=== PATIENT | male | born 1955 | race Caucasian/White ===

== ENCOUNTER 2018-05-31 05:36 | Emergency (ER) | payer MEDICARE, SELFPAY ==
[~2018-05-31] VITALS: Ht 172.7 cm; Wt 63.0 kg
[2018-05-31] MEDS ORDERED: DIAZ10TA PO (05:50)
[2018-05-31] MEDS ORDERED: OXYC-307 PO (05:50)
[2018-05-31] MEDS ORDERED: PARO20TA98 PO (05:50)
[2018-05-31] MEDS ORDERED: LIDOCAINE-MPF 1%, 5ML ONE (05:54)
[2018-05-31] MEDS ORDERED: DIPH,PERTUSS(ACELL),TET VAC/PF 0.5 ML IM-VACC ONE ×2 (05:54→06:00)
[2018-05-31] MEDS ORDERED: LIDOCAINE-MPF 1%, 5ML INFIL ONE (06:00)
[2018-05-31 08:09] VITALS: BP 122/68
== END 2018-05-31 08:11 | disposition home or self-care (01) ==
LOC: ED 07:48
DX: S61.411A Laceration without foreign body of right hand, initial encounter (principal); S43.402A Unspecified sprain of left shoulder joint, initial encounter; F32.9 Major depressive disorder, single episode, unspecified; F41.1 Generalized anxiety disorder; W45.8XXA Other foreign body or object entering through skin, initial encounter; Y93.89 Activity, other specified; Y92.009 Unspecified place in unspecified non-institutional (private) residence as the place of occurrence of the external cause; Y99.8 Other external cause status
CPT/HCPCS: 12042; 90471; 90715

== ENCOUNTER 2018-06-07 12:53 | Inpatient (IN) | payer MEDICARE, MEDICAID ==
[~2018-06-07] VITALS: Ht 167.6 cm; Wt 65.3 kg
[~2018-06-07 12:53] MED LIST: DIAZ10TA PO; OXYC-307 PO; PARO20TA98 PO
[2018-06-07 13:33] LABS: BASOPHILS # (AUTO) 0.05 x10^3/uL (0-0.1); BASOPHILS % (AUTO) 1 % (0-1); EOSINOPHILS # (AUTO) 0.11 x10^3/uL (0-0.4); EOSINOPHILS % (AUTO) 2 % (1-7); LYMPHOCYTES # (AUTO) 2.62 x10^3/uL (1-3.4); LYMPHOCYTES % (AUTO) 34 % (22-44); MD NO; MEAN CORPUSCULAR HEMOGLOBIN 33.2 pg (27.5-34.5); MEAN CORPUSCULAR HGB CONC 34.4 g/dL (33.2-36.2); MEAN CORPUSCULAR VOLUME 96.5 fL (81-97); MEAN PLATELET VOLUME 8.8 fL (7.4-10.4); MONOCYTES # (AUTO) 0.49 x10^3/uL (0.2-0.8); MONOCYTES % (AUTO) 6 % (2-9); NEUTROPHILS # (AUTO) 4.38 x10^3/uL (1.8-6.8); NEUTROPHILS % (AUTO) 57 % (42-75); PLATELET COUNT 270 x10^3/uL (130-400); RED BLOOD COUNT 3.84 x10^6/uL (4.38-5.82); RED CELL DISTRIBUTION WIDTH 14.3 % (9.4-14.8)
[2018-06-07 13:44] LABS: ANION GAP 9 mmol/L (5-15); CALCIUM 7.8 mg/dL (8.5-10.1); CHLORIDE 115 mmol/L (98-107); CREATININE 0.73 mg/dL (0.7-1.3)
[2018-06-07 13:45] LABS: ACETAMINOPHEN < 2 mcg/mL (10-30); ALBUMIN 3.3 g/dL (3.4-5.0); SALICYLATE LEVEL 5.4 mg/dL (2.8-20.0)
[2018-06-07 14:55] LABS: CHLORIDE,URINE RANDOM 67 mmol/L; POTASSIUM,URINE RANDOM 5 mmol/L; SODIUM,URINE RANDOM 68 mmol/L
[2018-06-07 14:56] LABS: CULTURE INDICATED? NO; MICROSCOPIC NOT IND
[2018-06-07 15:00] LABS: AMPHETAMINE SCREEN, URINE Negative (Negative); BARBITURATE SCREEN, URINE Negative (Negative); BENZODIAZEPINE SCREEN, URINE Positive (Negative); CANNABINOID SCREEN, URINE Negative (Negative); COCAINE SCREEN, URINE Negative (Negative); METHADONE SCREEN, URINE Negative (Negative); OPIATE SCREEN, URINE Negative (Negative)
[2018-06-07 15:07] LABS: OSMOLALITY,URINE 273 mOsm/kg (500-850)
[2018-06-07] MEDS ORDERED: SODIUM CHLORIDE FLUSH 10ML SYR IVF ONE ×2 (15:30)
[2018-06-07] MEDS ORDERED: POTASSIUM CHLORIDE 20 MEQ TAB.ER.PRT PO ONE (15:30)
[2018-06-07] MEDS ORDERED: SODIUM CHLORIDE 0.9% 1,000ML IVBOLUS ONE (15:30)
[2018-06-07] MEDS ORDERED: POTASSIUM CHLORIDE 20 MEQ TAB.ER.PRT ONE (15:41)
[2018-06-07] MEDS ORDERED: DOCUSATE 100 MG CAPSULE PO PRN (16:00)
[2018-06-07] MEDS ORDERED: ACETAMINOPHEN 325 MG TABLET PO PRN (16:00)
[2018-06-07] MEDS ORDERED: LORazepam 1MG TABLET PO PRN (16:00)
[2018-06-07] MEDS ORDERED: OXYcodone IR 5MG TABLET PO PRN (16:00)
[2018-06-07] MEDS ORDERED: ONDANSETRON 2MG/ML, 2ML IVPush PRN (16:00)
[2018-06-07 16:46] VITALS: BP 152/85
[2018-06-07] MEDS ORDERED: DIAZEPAM 2 MG TABLET ONE (18:04)
[2018-06-07] MEDS: NICOTINE 7 MG/24 HR PATCH.TD24 TD SCH (18:05)
[2018-06-07] MEDS: FOLIC ACID 1 MG TABLET PO SCH (18:05)
[2018-06-07] MEDS: THIAMINE 100MG TABLET PO SCH (18:05)
[2018-06-07] MEDS: ENOXAPARIN 40 MG/0.4 ML SQ SCH (18:06)
[2018-06-07] MEDS: DIAZEPAM 5 MG TABLET PO PRN (18:06)
[2018-06-07 19:46] VITALS: BP 147/78
[2018-06-07] MEDS ORDERED: LORazepam 2 MG/ML, 1ML IVPush PRN (20:00)
[2018-06-07] MEDS: POTASSIUM CHLORIDE 20 MEQ in DEXTROSE 5% 1,000 ML IV SCH (20:22)
[2018-06-07] MEDS: CHLORDIAZEPOXIDE 25 MG CAPSULE PO PRN (20:22)
[2018-06-07] MEDS: FAMOTIDINE 20 MG TABLET PO SCH (20:22)
[2018-06-08 01:43] VITALS: BP 162/71
[2018-06-08 05:53] LABS: BASOPHILS # (AUTO) 0.05 x10^3/uL (0-0.1); BASOPHILS % (AUTO) 1 % (0-1); EOSINOPHILS # (AUTO) 0.12 x10^3/uL (0-0.4); EOSINOPHILS % (AUTO) 2 % (1-7); LYMPHOCYTES # (AUTO) 1.82 x10^3/uL (1-3.4); LYMPHOCYTES % (AUTO) 27 % (22-44); MD NO; MEAN CORPUSCULAR HEMOGLOBIN 32.9 pg (27.5-34.5); MEAN CORPUSCULAR VOLUME 96.7 fL (81-97); MEAN PLATELET VOLUME 9.1 fL (7.4-10.4); MONOCYTES # (AUTO) 0.74 x10^3/uL (0.2-0.8); MONOCYTES % (AUTO) 11 % (2-9); NEUTROPHILS # (AUTO) 4.14 x10^3/uL (1.8-6.8); NEUTROPHILS % (AUTO) 60 % (42-75); PLATELET COUNT 266 x10^3/uL (130-400); RED BLOOD COUNT 4.16 x10^6/uL (4.38-5.82); RED CELL DISTRIBUTION WIDTH 14.3 % (9.4-14.8)
[2018-06-08 06:01] LABS: ALANINE AMINOTRANSFERASE 18 U/L (12-78); ALBUMIN 3.2 g/dL (3.4-5.0); ANION GAP 9 mmol/L (5-15); CALCIUM 8.4 mg/dL (8.5-10.1); CHLORIDE 108 mmol/L (98-107); CREATININE 0.71 mg/dL (0.7-1.3)
[2018-06-08 06:03] LABS: ALKALINE PHOSPHATASE 72 U/L (45-117); BILIRUBIN,TOTAL 0.6 mg/dL (0.2-1.0); TOTAL PROTEIN 6.9 g/dL (6.4-8.2)
[2018-06-08 07:39] VITALS: BP 184/95
[2018-06-08] MEDS: PAROXETINE 20 MG TABLET PO SCH (08:46)
[2018-06-08] MEDS: FOLIC ACID 1 MG TABLET PO SCH (08:46)
[2018-06-08] MEDS: CHLORDIAZEPOXIDE 25 MG CAPSULE PO PRN ×3 (08:46→23:58)
[2018-06-08] MEDS: FAMOTIDINE 20 MG TABLET PO SCH ×2 (08:46→20:01)
[2018-06-08] MEDS: THIAMINE 100MG TABLET PO SCH (08:46)
[2018-06-08] MEDS: POTASSIUM CHLORIDE 20 MEQ in DEXTROSE 5% 1,000 ML IV SCH (08:57)
[2018-06-08] MEDS ORDERED: PAROXETINE 10 MG TABLET PO SCH (09:00)
[2018-06-08] MEDS: LOSARTAN 25MG TABLET PO SCH (11:37)
[2018-06-08 13:18] VITALS: BP 156/89
[2018-06-08] MEDS: ENOXAPARIN 40 MG/0.4 ML SQ SCH (16:42)
[2018-06-08] MEDS: NICOTINE 7 MG/24 HR PATCH.TD24 TD SCH (16:43)
[2018-06-08 19:09] VITALS: BP 147/87
[2018-06-08] MEDS: DIAZEPAM 5 MG TABLET PO PRN (20:01)
[2018-06-09 01:29] VITALS: BP 122/77
[2018-06-09 01:40] VITALS: BP 122/77
[2018-06-09 07:59] VITALS: BP 156/97
[2018-06-09] MEDS: FAMOTIDINE 20 MG TABLET PO SCH (08:15)
[2018-06-09] MEDS: LOSARTAN 25MG TABLET PO SCH (08:15)
[2018-06-09] MEDS: THIAMINE 100MG TABLET PO SCH (08:15)
[2018-06-09] MEDS: CHLORDIAZEPOXIDE 25 MG CAPSULE PO PRN (08:15)
[2018-06-09 08:43] VITALS: BP 133/80
[2018-06-09] MEDS ORDERED: LOSA25TA2 PO (08:56)
[2018-06-09] MEDS: PAROXETINE 20 MG TABLET PO SCH (09:32)
[2018-06-09] MEDS: FOLIC ACID 1 MG TABLET PO SCH (09:32)
== END 2018-06-09 11:35 | DRG 641 ==
LOC: ED 13:36 → SUATTDRO 15:37 → EDIP 15:54 → 4EST 16:48 → 2N 06-09 00:48
PROVIDERS: ADMIT Internal Medicine; ATTEND Internal Medicine
DX: E87.0 Hyperosmolality and hypernatremia (principal); R45.851 Suicidal ideations; E87.6 Hypokalemia; F10.129 Alcohol abuse with intoxication, unspecified; F17.210 Nicotine dependence, cigarettes, uncomplicated; M54.9 Dorsalgia, unspecified; F41.1 Generalized anxiety disorder; G89.29 Other chronic pain; I10 Essential (primary) hypertension; Z91.14 Patient's other noncompliance with medication regimen; Z91.5 Personal history of self-harm
CPT/HCPCS: 36415; 80048; 80053; 80307; 80329; 81003; 82040; 82436; 83930; 83935; 84133; 84300; 85025; 93005; 99285; G0378; J1650; J3480; J7070; G0480; J2060

== ENCOUNTER 2018-10-27 09:07 | Emergency (ER) | payer MEDICAID, MEDICARE ==
[~2018-10-27] VITALS: Ht 170.2 cm; Wt 70.0 kg
[~2018-10-27 09:07] MED LIST changes: +LOSA25TA2 PO
--- NOTE | 2018-10-27 09:36 | NUR ---
Patient to room at this time, first contact with patient. Patient reports he has been drinking alcohol this morning. Continuous blood pressure, SPO2 monitoring in place, call spangler within reach.
--- NOTE | 2018-10-27 10:37 | NUR ---
Breakfast tray provided, patient sitting up eating breakfast at this time. No complaints or requests.
--- NOTE | 2018-10-27 10:53 | NUR ---
Report to ELI Zuñiga; care transferred at this time.
--- NOTE | 2018-10-27 11:15 | NUR ---
REPORT FROM KRISTIAN BENITEZ. PT YELLING OUT FOR BLANKET. FIRST CONTACT WITH PT. PT ASKED TO GET DRESSED, ABLE TO DRESS SELF AND WALKS WITH STEADY GAIT. PT GIVEN DISCHARGE INSTRUCTS WITH REFERRAL TO [facility] [place] [facility].
[2018-10-27 11:16] VITALS: BP 138/92
== END 2018-10-27 11:19 | disposition home or self-care (01) ==
LOC: ED 11:00
DX: F10.129 Alcohol abuse with intoxication, unspecified (principal); F32.9 Major depressive disorder, single episode, unspecified; F41.1 Generalized anxiety disorder
CPT/HCPCS: 99283

== ENCOUNTER 2019-02-04 15:30 | Emergency (ER) | payer MEDICARE, MEDICAID ==
[~2019-02-04] VITALS: Ht 170.2 cm; Wt 60.0 kg
[2019-02-04 16:23] VITALS: BP 157/74
== END 2019-02-04 16:30 | disposition home or self-care (01) ==
LOC: ED 16:24
DX: F10.229 Alcohol dependence with intoxication, unspecified (principal); Y90.0 Blood alcohol level of less than 20 mg/100 ml; F32.9 Major depressive disorder, single episode, unspecified; I10 Essential (primary) hypertension
CPT/HCPCS: 99281

== ENCOUNTER 2019-08-11 22:43 | Emergency (ER) | payer MEDICARE, MEDICAID ==
[~2019-08-11] VITALS: Ht 172.7 cm; Wt 70.0 kg
--- NOTE | 2019-08-11 22:57 | NUR ---
pt was on wall, pt stated to romelia junior qa analyst from [facility] that now he wants to go to [facility]. romelia is calling [facility] to send pt, asked this rn for taxi voucher
--- NOTE | 2019-08-11 23:04 | NUR ---
this rn atttempted to put pt in taxi. pt now wants to be seen. cancel taxi
[2019-08-11 23:46] LABS: BASOPHILS # (AUTO) 0.03 x10^3/uL (0-0.1); BASOPHILS % (AUTO) 1 % (0-1); EOSINOPHILS # (AUTO) 0.07 x10^3/uL (0-0.4); EOSINOPHILS % (AUTO) 1 % (1-7); LYMPHOCYTES # (AUTO) 2.08 x10^3/uL (1-3.4); LYMPHOCYTES % (AUTO) 32 % (22-44); MD NO; MEAN CORPUSCULAR HGB CONC 33.2 g/dL (33.2-36.2); MEAN CORPUSCULAR VOLUME 96.2 fL (81-97); MEAN PLATELET VOLUME 8.9 fL (7.4-10.4); MONOCYTES # (AUTO) 0.49 x10^3/uL (0.2-0.8); MONOCYTES % (AUTO) 7 % (2-9); NEUTROPHILS # (AUTO) 3.91 x10^3/uL (1.8-6.8); NEUTROPHILS % (AUTO) 60 % (42-75); PLATELET COUNT 411 x10^3/uL (130-400); RED BLOOD COUNT 4.78 x10^6/uL (4.38-5.82); RED CELL DISTRIBUTION WIDTH 14.1 % (9.4-14.8)
--- NOTE | 2019-08-11 23:53 | NUR ---
PT STATES HE HAS TO GO TO WORK AT 0200. PT WAS INFORMED HE NEEDS TO STAY IN THE HOSPITAL FOR TREATMENT. PT REQUESTED THIS RN CALL HIS BOSS AND INFORM THEM HE IS IN THE HOSPITAL. THIS RN CALLED HIS HOT POND OPERATOR AND ONLY INFORMED THEM HE WILL BE ADMITTED TO THE HOSPITAL TONIGHT. NO FURTHER INFO GIVEN. THEY ONLY REQUEST HE GIVES THEM A WORK NOTE UPON HIS ARRIVAL.
[2019-08-12] LABS: ALBUMIN 3.3 g/dL (3.4-5.0); ANION GAP 7 mmol/L (5-15); CALCIUM 8.1 mg/dL (8.5-10.1); CHLORIDE 110 mmol/L (98-107)
[2019-08-12 00:05] LABS: ALANINE AMINOTRANSFERASE 48 U/L (12-78); ALKALINE PHOSPHATASE 79 U/L (45-117); BILIRUBIN,TOTAL 0.4 mg/dL (0.2-1.0); CREATININE 1.06 mg/dL (0.7-1.3); SALICYLATE LEVEL 1.9 mg/dL (2.8-20.0); TOTAL PROTEIN 7.8 g/dL (6.4-8.2)
--- NOTE | 2019-08-12 00:05 | NUR ---
REPORT RECEIVED FROM ELI ORTIZ. PT REPORTS FEELING ANXIOUS, MD NOTIFIED.
[2019-08-12 00:13] LABS: AMPHETAMINE SCREEN, URINE Negative (Negative); BARBITURATE SCREEN, URINE Negative (Negative); BENZODIAZEPINE SCREEN, URINE Negative (Negative); CANNABINOID SCREEN, URINE Negative (Negative); COCAINE SCREEN, URINE Negative (Negative); METHADONE SCREEN, URINE Negative (Negative); OPIATE SCREEN, URINE Negative (Negative)
[2019-08-12] MEDS ORDERED: LORazepam 1MG TABLET ONE (00:24)
[2019-08-12] MEDS ORDERED: LORazepam 1MG TABLET PO ONE (00:30)
--- NOTE | 2019-08-12 00:49 | NUR ---
PT MEDICATED PER AUG. PROVIDED WATER. DENIES FURTHER NEEDS AT THIS TIME.
--- NOTE | 2019-08-12 02:04 | NUR ---
PT RESTING WITH EYES CLOSED ON GURNEY. RESPIRATIONS EVEN AND NONLABORED. SITTER IN HALLWAY WITHIN LINE OF SIGHT. ROOM SECURED.
--- NOTE | 2019-08-12 02:46 | NUR ---
PT RESTING WITH EYES CLOSED, RESPIRATIONS EVEN AND NONLABORED, SITTER IN HALLWAY WITHIN LINE OF SIGHT, ROOM SECURED.
--- NOTE | 2019-08-12 03:50 | NUR ---
PT PROVIDED WTER, SNADWICH AND CRACKERS. PT DENIES FURTHER NEEDS AT THIS TIME.
[2019-08-12 07:10] VITALS: BP 130/86
--- NOTE | 2019-08-12 07:21 | NUR ---
ASSUMED CARE. PT IN DIRECT VIEW OF SITTER WITH ROOM SUPPLIES SECURED BEHIND PULL DOWN DOORS. TELEPSYCH ROBOT IN ROOM. PT BECOMING FIDETY AND COMPLAINING OF CRAMPING. PT STATES HE BELIEVES THAT HE IS STARTING TO GO THROUGH WITHDRAWALS. TO SPEAK WITH
[2019-08-12] MEDS ORDERED: CHLORDIAZEPOXIDE 25 MG CAPSULE ONE (07:29)
[2019-08-12] MEDS ORDERED: CHLORDIAZEPOXIDE 25 MG CAPSULE PO PRN (07:30)
--- NOTE | 2019-08-12 08:20 | NUR ---
PT PROVIDED BREAKFAST TRAY. TELEPSYCH INTERVIEW COMPLETED.
--- NOTE | 2019-08-12 09:17 | NUR ---
Belongings returned to patient. DC papers provided. Pt verb. understanding of instructions.
[2019-08-12] MEDS ORDERED: PIPERONYL BUTOXIDE/PYRETHRINS SHAMPOO ONE (09:26)
== END 2019-08-12 09:19 | disposition home or self-care (01) ==
LOC: ED 08-12 09:03
DX: F10.220 Alcohol dependence with intoxication, uncomplicated (principal); R45.851 Suicidal ideations; F32.9 Major depressive disorder, single episode, unspecified; I10 Essential (primary) hypertension; Z87.891 Personal history of nicotine dependence; Y90.9 Presence of alcohol in blood, level not specified
CPT/HCPCS: 36415; 80053; 80307; 85025; 99283

== ENCOUNTER 2019-08-13 23:24 | Emergency (ER) | payer MEDICAID, MEDICARE ==
[~2019-08-13] VITALS: Ht 170.2 cm; Wt 68.0 kg
[2019-08-14 00:35] LABS: ALANINE AMINOTRANSFERASE 52 U/L (12-78); ALBUMIN 3.1 g/dL (3.4-5.0); ANION GAP 5 mmol/L (5-15); CHLORIDE 112 mmol/L (98-107); SALICYLATE LEVEL 1.9 mg/dL (2.8-20.0)
[2019-08-14 00:37] LABS: ALKALINE PHOSPHATASE 83 U/L (45-117); BASOPHILS # (AUTO) 0.05 x10^3/uL (0-0.1); BASOPHILS % (AUTO) 1 % (0-1); BILIRUBIN,TOTAL 0.3 mg/dL (0.2-1.0); EOSINOPHILS # (AUTO) 0.19 x10^3/uL (0-0.4); EOSINOPHILS % (AUTO) 3 % (1-7); LYMPHOCYTES # (AUTO) 2.05 x10^3/uL (1-3.4); LYMPHOCYTES % (AUTO) 37 % (22-44); MD NO; MEAN CORPUSCULAR HGB CONC 33.4 g/dL (33.2-36.2); MEAN CORPUSCULAR VOLUME 95.9 fL (81-97); MONOCYTES # (AUTO) 0.72 x10^3/uL (0.2-0.8); MONOCYTES % (AUTO) 13 % (2-9); NEUTROPHILS # (AUTO) 2.57 x10^3/uL (1.8-6.8); NEUTROPHILS % (AUTO) 46 % (42-75); PLATELET COUNT 323 x10^3/uL (130-400); RED BLOOD COUNT 4.56 x10^6/uL (4.38-5.82); TOTAL PROTEIN 7.2 g/dL (6.4-8.2)
--- NOTE | 2019-08-14 01:32 | NUR ---
pt yelling and threating to leave if he does not talk with the provider. provider notified and went and talked with pt. pt calmed down after talk with provider, pt got back into bed and was polite after.
[2019-08-14 01:38] LABS: AMPHETAMINE SCREEN, URINE Negative (Negative); BARBITURATE SCREEN, URINE Negative (Negative); BENZODIAZEPINE SCREEN, URINE Positive (Negative); CANNABINOID SCREEN, URINE Negative (Negative); COCAINE SCREEN, URINE Negative (Negative); METHADONE SCREEN, URINE Negative (Negative); OPIATE SCREEN, URINE Negative (Negative)
[2019-08-14 05:35] VITALS: BP 136/74
--- NOTE | 2019-08-14 05:36 | NUR ---
pt resting in bed, pt talked with tele dr, pt has been cooperative through out the night.
== END 2019-08-14 06:21 | disposition home or self-care (01) ==
LOC: ED 08-14 04:52
DX: F32.9 Major depressive disorder, single episode, unspecified (principal); F10.10 Alcohol abuse, uncomplicated; Y90.0 Blood alcohol level of less than 20 mg/100 ml
CPT/HCPCS: 36415; 80053; 80307; 85025; 99283; Q0177

== ENCOUNTER 2020-02-05 09:40 | Emergency (ER) | payer MEDICARE, OTHER ==
[~2020-02-05] VITALS: Ht 170.2 cm; Wt 73.4 kg
[2020-02-05 09:47] VITALS: BP 109/65
[2020-02-05] MEDS ORDERED: THIAMINE 100 MG/ML, 2ML IM ONE (10:00)
[2020-02-05 10:10] LABS: BASOPHILS # (AUTO) 0.02 x10^3/uL (0-0.1); BASOPHILS % (AUTO) 0 % (0-1); EOSINOPHILS # (AUTO) 0.11 x10^3/uL (0-0.4); EOSINOPHILS % (AUTO) 2 % (1-7); LYMPHOCYTES # (AUTO) 2.19 x10^3/uL (1-3.4); LYMPHOCYTES % (AUTO) 37 % (22-44); MD NO; MEAN CORPUSCULAR HEMOGLOBIN 31.4 pg (27.5-34.5); MEAN CORPUSCULAR HGB CONC 32.1 g/dL (33.2-36.2); MEAN CORPUSCULAR VOLUME 97.6 fL (81-97); MEAN PLATELET VOLUME 9.1 fL (7.4-10.4); MONOCYTES # (AUTO) 0.43 x10^3/uL (0.2-0.8); MONOCYTES % (AUTO) 7 % (2-9); NEUTROPHILS # (AUTO) 3.21 x10^3/uL (1.8-6.8); NEUTROPHILS % (AUTO) 54 % (42-75); PLATELET COUNT 200 x10^3/uL (130-400); RED BLOOD COUNT 4.83 x10^6/uL (4.38-5.82); RED CELL DISTRIBUTION WIDTH 15.8 % (9.4-14.8)
[2020-02-05 10:17] LABS: ALBUMIN 3.5 g/dL (3.4-5.0); ANION GAP 7 mmol/L (5-15); CALCIUM 7.9 mg/dL (8.5-10.1); CHLORIDE 115 mmol/L (98-107); CREATININE 0.75 mg/dL (0.7-1.3)
[2020-02-05] MEDS ORDERED: THIAMINE 100 MG/ML, 2ML ONE (10:36)
--- NOTE | 2020-02-05 11:49 | NUR ---
WITH REASSESSMENT PATIENT ALERT BUT DROWSY-STILL TOO INTOXICATED FOR ROAD TEST RESTING COMFORTABLY. VSS
--- NOTE | 2020-02-05 13:00 | NUR ---
Pt remains drowsy and sleeping in bed. NADN Pts vss.
--- NOTE | 2020-02-05 14:06 | NUR ---
Road test and po challenge unremarkable Provider to bedside to reasses-d/c paperwork printed
== END 2020-02-05 14:45 | disposition home or self-care (01) ==
LOC: ED 14:39
DX: F10.129 Alcohol abuse with intoxication, unspecified (principal); I10 Essential (primary) hypertension; F17.200 Nicotine dependence, unspecified, uncomplicated; Y90.9 Presence of alcohol in blood, level not specified
CPT/HCPCS: 36415; 80048; 82040; 85025; 96372; 99283; J3411

== ENCOUNTER 2020-03-29 18:31 | Emergency (ER) | payer MEDICARE, MEDICAID ==
[~2020-03-29] VITALS: Ht 170.2 cm; Wt 79.0 kg
--- NOTE | 2020-03-29 18:55 | NUR ---
REPORT FROM CLAUDIA BENITEZ, ASSUMING CARE OF PT AT THIS TIME
--- NOTE | 2020-03-29 19:04 | NUR ---
PT TO CT AT THIS TIME
--- NOTE | 2020-03-29 19:46 | NUR ---
PT SHOUTING ON GURNEY REMOVING ALL MONITORING, PT RECONNECTED TO MONITORING PROVIDED URINAL AND EDUCATED ON USE OF CALL LIGHT
[2020-03-29 19:57] VITALS: BP 141/87
--- NOTE | 2020-03-29 19:57 | NUR ---
PT HAS REMOVED ALL MONITORING AGAIN NOW RESTING ON [facility]
--- NOTE | 2020-03-29 20:40 | NUR ---
SIGN WIRER: ATTEMPTED TO DISCHARGE PATIENT. PATIENT UNABLE TO AMBULATE WITH STEADY GAIT. UPDATED PRIMARY RN.
--- NOTE | 2020-03-29 21:40 | NUR ---
PT STILL RESTING ON JANEFarazNIECY EVAN CALL LIGHT IN REACH STILL REFUSING MONITORING AT THIS TIME
--- NOTE | 2020-03-29 22:56 | NUR ---
PT STILL SLEEPING ON SHIV GORDON
--- NOTE | 2020-03-29 23:03 | NUR ---
PT REORIENTED TO NOT INFACT BEING AT HIS HOME BUT HE IS AT THE HOSPITAL. PT REMAINS NAKED BY CHOICE AT THIS TIME, ENCOURAGED TO DRESS IN OWN CLOTHES OR GOWN PT DECLINED ROLLED OVER AND PROMPTLY WENT BACK TO SLEEP
== END 2020-03-30 00:10 | disposition home or self-care (01) ==
LOC: EDBD → MERGE 18:31 → ED 23:30
DX: S09.90XA Unspecified injury of head, initial encounter (principal); F10.220 Alcohol dependence with intoxication, uncomplicated; M54.2 Cervicalgia; I10 Essential (primary) hypertension; W18.30XA Fall on same level, unspecified, initial encounter; Y93.89 Activity, other specified; Y92.89 Other specified places as the place of occurrence of the external cause; Y99.8 Other external cause status; Y90.9 Presence of alcohol in blood, level not specified
CPT/HCPCS: 70450; 72125; 99285

== ENCOUNTER 2020-06-03 08:40 | Emergency (ER) | payer OTHER, MEDICAID ==
[~2020-06-03] VITALS: Ht 170.2 cm; Wt 72.0 kg
--- NOTE | 2020-06-03 09:47 | NUR ---
PT RESTING, VSS, NOT IN RESP DISTRESS. LAB, XR, EKG COMPLETED
[2020-06-03 09:52] LABS: ALBUMIN 3.3 g/dL (3.4-5.0); ANION GAP 10 mmol/L (5-15); CHLORIDE 112 mmol/L (98-107)
[2020-06-03 09:55] LABS: ALANINE AMINOTRANSFERASE 58 U/L (12-78); ALKALINE PHOSPHATASE 77 U/L (45-117); BILIRUBIN,TOTAL 0.3 mg/dL (0.2-1.0); CREATININE 0.97 mg/dL (0.7-1.3); TOTAL PROTEIN 7.7 g/dL (6.4-8.2)
[2020-06-03 10:33] LABS: BASOPHILS % (AUTO) 1 % (0-1); EOSINOPHILS % (AUTO) 2 % (1-7); LYMPHOCYTES % (AUTO) 30 % (22-44); MEAN CORPUSCULAR HEMOGLOBIN 32.3 pg (27.5-34.5); MEAN CORPUSCULAR HGB CONC 33.8 g/dL (33.2-36.2); MEAN PLATELET VOLUME 8.8 fL (7.4-10.4); MONOCYTES % (AUTO) 10 % (2-9); NEUTROPHILS % (AUTO) 58 % (42-75); PLATELET COUNT 300 x10^3/uL (130-400); RED BLOOD COUNT 5.16 x10^6/uL (4.38-5.82)
[2020-06-03 10:40] LABS: MD NO
--- NOTE | 2020-06-03 11:00 | NUR ---
Patient/Caregiver given discharge instructions and they have confirmed that they understand the instructions. Patient ambulatory with steady gait.
[2020-06-03 11:01] VITALS: BP 144/81
--- NOTE | 2020-06-03 11:21 | NUR ---
Patient/Caregiver given discharge instructions and they have confirmed that they understand the instructions. Patient ambulatory with steady gait.
== END 2020-06-03 11:33 | disposition home or self-care (01) ==
LOC: ED 09:29
DX: U07.1 COVID-19 (principal); J44.1 Chronic obstructive pulmonary disease with (acute) exacerbation; F13.1 Sedative, hypnotic or anxiolytic-related abuse; R06.02 Shortness of breath; R07.89 Other chest pain; R00.0 Tachycardia, unspecified; I10 Essential (primary) hypertension; F17.210 Nicotine dependence, cigarettes, uncomplicated
CPT/HCPCS: 36415; 71045; 80053; 83880; 85025; 93005; 99283

== ENCOUNTER 2020-09-10 19:57 | Inpatient (IN) | payer MEDICARE, MEDICAID ==
[~2020-09-10] VITALS: Ht 170.2 cm; Wt 66.2 kg
[~2020-09-10 19:57] MED LIST changes: +ARIP5TAB13 PO; +GABA300C PO; +LISI-170 PO; +LOSA50TA2 PO; +NICO-486 TD; -OXYC-307 PO; +OXYC-380 PO; +PANT40TA6 PO; +THIA100T67 PO; +TRAZ50TA66 PO
[2020-09-10] MEDS ORDERED: LORazepam 1MG TABLET ONE (20:21)
[2020-09-10 20:30] LABS: BASOPHILS % (AUTO) 0 % (0-1); EOSINOPHILS % (AUTO) 0 % (1-7); LYMPHOCYTES % (AUTO) 3 % (22-44); MEAN CORPUSCULAR HEMOGLOBIN 32.4 pg (27.5-34.5); MEAN CORPUSCULAR HGB CONC 33.1 g/dL (33.2-36.2); MEAN PLATELET VOLUME 9.1 fL (7.4-10.4); MONOCYTES % (AUTO) 5 % (2-9); NEUTROPHILS % (AUTO) 92 % (42-75); PLATELET COUNT 313 x10^3/uL (130-400); RED BLOOD COUNT 4.29 x10^6/uL (4.38-5.82)
[2020-09-10] MEDS ORDERED: THIAMINE 100 MG in SODIUM CHLORIDE 0.9% 50 ML IVPB ONE (20:30)
[2020-09-10] MEDS ORDERED: LORazepam 1MG TABLET PO ONE (20:30)
[2020-09-10] MEDS ORDERED: SODIUM CHLORIDE FLUSH 10ML SYR IVF ONE (20:30)
[2020-09-10] MEDS ORDERED: SODIUM CHLORIDE 0.9% 1,000ML IVBOLUS ONE (20:30)
[2020-09-10] MEDS ORDERED: PLEASE ENTER HEIGHT AND WEIGHT MC SCH (20:30)
[2020-09-10 20:40] LABS: ALANINE AMINOTRANSFERASE 51 U/L (12-78); ALBUMIN 3.5 g/dL (3.4-5.0); ANION GAP 17 mmol/L (5-15); CALCIUM 8.7 mg/dL (8.5-10.1); CHLORIDE 106 mmol/L (98-107); CREATININE 1.18 mg/dL (0.7-1.3)
[2020-09-10 20:43] LABS: ALKALINE PHOSPHATASE 87 U/L (45-117); TOTAL PROTEIN 7.1 g/dL (6.4-8.2)
[2020-09-10 20:48] LABS: MD SCAN
[2020-09-10] MEDS ORDERED: LORazepam 2 MG/ML, 1ML ONE ×2 (20:49→21:32)
[2020-09-10] MEDS: LORazepam 2 MG/ML, 1ML IVPush PRN (20:52)
[2020-09-10] MEDS ORDERED: LORazepam 2 MG/ML, 1ML IVPush ONE (21:00)
[2020-09-10] MEDS ORDERED: PARO10TA56 PO (23:22)
--- NOTE | 2020-09-10 23:28 | NUR ---
pt resting in gurney, states feeling much better. dozing intermittently. no other needs at this time
--- NOTE | 2020-09-10 23:38 | NUR ---
called [facility] for report, dr. lincoln to see before transfer
--- NOTE | 2020-09-11 00:27 | NUR ---
REPORT TO ELI OWEN
[2020-09-11] MEDS ORDERED: DOCUSATE 100 MG CAPSULE PO PRN (00:30)
[2020-09-11] MEDS ORDERED: hydrALAzine 20 MG/ML, 1ML IVPush PRN (00:30)
[2020-09-11] MEDS ORDERED: LORazepam 0.5MG TABLET PO PRN (00:30)
[2020-09-11] MEDS ORDERED: ONDANSETRON 2MG/ML, 2ML IVPush PRN (00:30)
[2020-09-11] MEDS ORDERED: CHLORDIAZEPOXIDE 25 MG CAPSULE PO SCH (00:30)
[2020-09-11] MEDS ORDERED: POLYETHYLENE GLYCOL 17 GM PACKET PO PRN (00:30)
[2020-09-11] MEDS ORDERED: BISACODYL 10 MG SUPP PR PRN (00:30)
[2020-09-11] MEDS ORDERED: LORazepam 2 MG/ML, 1ML IV PRN ×5 (00:30)
[2020-09-11] MEDS ORDERED: LORazepam 1MG TABLET PO PRN ×4 (00:30)
[2020-09-11] MEDS ORDERED: ONDANSETRON ODT 4 MG PO PRN (00:30)
[2020-09-11] MEDS ORDERED: PROMETHAZINE 25 MG/ML, 1ML IM PRN (00:30)
[2020-09-11] MEDS ORDERED: LORazepam 2 MG/ML, 1ML ONE (00:31)
[2020-09-11] MEDS: LORazepam 2 MG/ML, 1ML IVPush PRN (00:34)
[2020-09-11] MEDS: THIAMINE 200 MG, FOLIC ACID 1 MG in D5%-0.9% NACL 1,000 ML IV SCH (02:02)
[2020-09-11] MEDS: TRAZODONE 50MG TABLET PO SCH ×2 (02:03→20:32)
[2020-09-11] MEDS: ENOXAPARIN 40 MG/0.4 ML SQ SCH (02:03)
[2020-09-11] MEDS: GABAPENTIN 300 MG CAPSULE PO SCH ×5 (02:03→20:32)
[2020-09-11] MEDS ORDERED: ALBUTEROL HFA 90 MCG/SPRAY INH PRN (04:00)
[2020-09-11 04:16] LABS: BASOPHILS % (AUTO) 0 % (0-1); EOSINOPHILS % (AUTO) 0 % (1-7); LYMPHOCYTES % (AUTO) 20 % (22-44); MD NO; MEAN CORPUSCULAR HEMOGLOBIN 32.3 pg (27.5-34.5); MEAN CORPUSCULAR HGB CONC 32.9 g/dL (33.2-36.2); MEAN PLATELET VOLUME 9.5 fL (7.4-10.4); MONOCYTES % (AUTO) 8 % (2-9); NEUTROPHILS % (AUTO) 71 % (42-75); PLATELET COUNT 285 x10^3/uL (130-400); RED CELL DISTRIBUTION WIDTH 14.9 % (9.4-14.8)
[2020-09-11 04:28] LABS: ALANINE AMINOTRANSFERASE 46 U/L (12-78); ALBUMIN 3.2 g/dL (3.4-5.0); ANION GAP 13 mmol/L (5-15); CHLORIDE 108 mmol/L (98-107); CREATININE 0.85 mg/dL (0.7-1.3)
[2020-09-11 04:36] LABS: ALKALINE PHOSPHATASE 78 U/L (45-117); CHOL/HDL RATIO 1.9; CHOLESTEROL, TOTAL 142 mg/dL (140-239); HDL CHOL % 54 % (26-37); HDL CHOLESTEROL (DIRECT) 76 mg/dL (40-60); LDL CHOLESTEROL,CALCULATED 51 mg/dL (54-169); LDL/HDL RATIO 0.7 (0.5-3.0); TOTAL PROTEIN 6.6 g/dL (6.4-8.2); TRIGLYCERIDES 76 mg/dL (50-200); VLDL CHOLESTEROL 15 mg/dL (0-25)
[2020-09-11] MEDS ORDERED: PHARMACY INSTRUCTION MC PRN ×4 (07:30)
[2020-09-11] MEDS ORDERED: MAGNESIUM SULFATE PMX 4GM/100M 100 ML IVPB ONE (07:30)
[2020-09-11] MEDS ORDERED: DEXMEDETOMIDINE 200 MCG in SODIUM CHLORIDE 0.9% 48 ML IV PRN (07:30)
[2020-09-11] MEDS ORDERED: PHENOBARBITAL SODIUM IVPB ONE (07:30)
[2020-09-11] MEDS ORDERED: SODIUM CHLORIDE 0.9% IVPB ONE (07:30)
[2020-09-11] MEDS: LOSARTAN 50MG TABLET PO SCH (09:00)
[2020-09-11] MEDS: ARIPIPRAZOLE 5 MG TABLET PO SCH (09:00)
[2020-09-11] MEDS: PAROXETINE 10 MG TABLET PO SCH (09:00)
[2020-09-11] MEDS: PHENOBARBITAL SODIUM 65 MG/ML, 1ML IM SCH (15:29)
[2020-09-12] MEDS: THIAMINE 200 MG, FOLIC ACID 1 MG in D5%-0.9% NACL 1,000 ML IV SCH (00:32)
[2020-09-12] MEDS: ENOXAPARIN 40 MG/0.4 ML SQ SCH (00:38)
[2020-09-12] MEDS: PHENOBARBITAL SODIUM 65 MG/ML, 1ML IM SCH ×2 (00:38→15:20)
[2020-09-12] MEDS: OXYcodone IR 5MG TABLET PO PRN (01:01)
[2020-09-12 04:13] LABS: ANION GAP 6 mmol/L (5-15); CALCIUM 8.1 mg/dL (8.5-10.1); CHLORIDE 109 mmol/L (98-107); CREATININE 0.76 mg/dL (0.7-1.3)
[2020-09-12] MEDS: ARIPIPRAZOLE 5 MG TABLET PO SCH (09:42)
[2020-09-12] MEDS: PAROXETINE 10 MG TABLET PO SCH (09:42)
[2020-09-12] MEDS: GABAPENTIN 300 MG CAPSULE PO SCH ×3 (09:42→21:12)
[2020-09-12] MEDS: LOSARTAN 50MG TABLET PO SCH (09:42)
[2020-09-12] MEDS: TRAZODONE 50MG TABLET PO SCH (21:12)
[2020-09-13] MEDS: ENOXAPARIN 40 MG/0.4 ML SQ SCH (00:30)
[2020-09-13] MEDS: THIAMINE 200 MG, FOLIC ACID 1 MG in D5%-0.9% NACL 1,000 ML IV SCH (00:35)
[2020-09-13 01:44] VITALS: BP 134/67
[2020-09-13] MEDS: PHENOBARBITAL SODIUM 65 MG/ML, 1ML IM SCH (02:09)
[2020-09-13 06:59] VITALS: BP 126/75
[2020-09-13] MEDS: PAROXETINE 10 MG TABLET PO SCH (08:46)
[2020-09-13] MEDS: GABAPENTIN 300 MG CAPSULE PO SCH ×3 (08:46→21:11)
[2020-09-13] MEDS: LOSARTAN 50MG TABLET PO SCH (08:46)
[2020-09-13] MEDS: ARIPIPRAZOLE 5 MG TABLET PO SCH (08:46)
[2020-09-13 13:13] VITALS: BP 143/88
[2020-09-13] MEDS: PHENOBARBITAL 20 MG/5 ML ORAL SOL PO SCH (14:55)
[2020-09-13] MEDS: CHLORDIAZEPOXIDE 25 MG CAPSULE PO SCH (18:42)
[2020-09-13 18:59] VITALS: BP 143/88
[2020-09-13] MEDS: TRAZODONE 50MG TABLET PO SCH (21:11)
[2020-09-14] MEDS: THIAMINE 200 MG, FOLIC ACID 1 MG in D5%-0.9% NACL 1,000 ML IV SCH (00:48)
[2020-09-14] MEDS: CHLORDIAZEPOXIDE 25 MG CAPSULE PO SCH ×3 (00:50→16:22)
[2020-09-14] MEDS: ENOXAPARIN 40 MG/0.4 ML SQ SCH (00:50)
[2020-09-14] MEDS: PHENOBARBITAL 20 MG/5 ML ORAL SOL PO SCH ×2 (01:52→13:47)
[2020-09-14 03:11] VITALS: BP 146/82
[2020-09-14 05:56] LABS: ANION GAP 7 mmol/L (5-15); CALCIUM 8.7 mg/dL (8.5-10.1); CHLORIDE 110 mmol/L (98-107); CREATININE 0.78 mg/dL (0.7-1.3)
[2020-09-14] MEDS ORDERED: MAGNESIUM SULFATE PMX 4GM/100M 100 ML IVPB ONE (06:30)
[2020-09-14] MEDS: POTASSIUM CHLORIDE 20 MEQ TAB.ER.PRT PO SCH ×2 (07:44→16:22)
[2020-09-14] MEDS: PAROXETINE 10 MG TABLET PO SCH (07:44)
[2020-09-14] MEDS: LOSARTAN 50MG TABLET PO SCH (07:44)
[2020-09-14] MEDS: ARIPIPRAZOLE 5 MG TABLET PO SCH (07:45)
[2020-09-14] MEDS: GABAPENTIN 300 MG CAPSULE PO SCH ×3 (07:45→20:16)
[2020-09-14 08:55] VITALS: BP 149/78
[2020-09-14 15:22] VITALS: BP 150/93
[2020-09-14] MEDS: OXYcodone IR 5MG TABLET PO PRN (16:30)
[2020-09-14 18:26] VITALS: BP 129/85
[2020-09-14] MEDS: TRAZODONE 50MG TABLET PO SCH (20:16)
[2020-09-15] MEDS: CHLORDIAZEPOXIDE 25 MG CAPSULE PO SCH ×3 (00:19→16:43)
[2020-09-15] MEDS: ENOXAPARIN 40 MG/0.4 ML SQ SCH (00:20)
[2020-09-15 01:13] VITALS: BP 125/82
[2020-09-15] MEDS: PHENOBARBITAL 20 MG/5 ML ORAL SOL PO SCH ×2 (01:18→13:13)
[2020-09-15] MEDS: THIAMINE 200 MG, FOLIC ACID 1 MG in D5%-0.9% NACL 1,000 ML IV SCH (01:27)
[2020-09-15] MEDS: OXYcodone IR 5MG TABLET PO PRN ×2 (03:24→15:14)
[2020-09-15] MEDS ORDERED: MAGNESIUM SULFATE PMX 4GM/100M 100 ML IVPB ONE (06:30)
[2020-09-15] MEDS: POTASSIUM CHLORIDE 20 MEQ TAB.ER.PRT PO SCH ×2 (07:22→16:43)
[2020-09-15] MEDS: LOSARTAN 50MG TABLET PO SCH (07:22)
[2020-09-15] MEDS: GABAPENTIN 300 MG CAPSULE PO SCH ×3 (07:23→21:16)
[2020-09-15] MEDS: PAROXETINE 10 MG TABLET PO SCH (07:23)
[2020-09-15] MEDS: ARIPIPRAZOLE 5 MG TABLET PO SCH (07:26)
[2020-09-15 08:25] VITALS: BP 148/87
[2020-09-15 13:25] VITALS: BP 128/75
[2020-09-15 19:53] VITALS: BP 134/79
[2020-09-15] MEDS: TRAZODONE 50MG TABLET PO SCH (21:16)
[2020-09-16 00:30] VITALS: BP 146/93
[2020-09-16] MEDS: CHLORDIAZEPOXIDE 25 MG CAPSULE PO SCH ×2 (00:31→07:54)
[2020-09-16] MEDS: ENOXAPARIN 40 MG/0.4 ML SQ SCH (00:32)
[2020-09-16] MEDS: PHENOBARBITAL 20 MG/5 ML ORAL SOL PO SCH (01:23)
[2020-09-16] MEDS: THIAMINE 200 MG, FOLIC ACID 1 MG in D5%-0.9% NACL 1,000 ML IV SCH (01:24)
[2020-09-16] MEDS: OXYcodone IR 5MG TABLET PO PRN (05:06)
[2020-09-16] MEDS: GABAPENTIN 300 MG CAPSULE PO SCH (07:54)
[2020-09-16] MEDS: PAROXETINE 10 MG TABLET PO SCH (07:54)
[2020-09-16] MEDS: ARIPIPRAZOLE 5 MG TABLET PO SCH (07:54)
[2020-09-16] MEDS: LOSARTAN 50MG TABLET PO SCH (07:54)
[2020-09-16 09:43] VITALS: BP 109/67
[2020-09-16] MEDS ORDERED: PHENOBARBITAL 20 MG/5 ML ORAL SOL PO SCH (14:00)
== END 2020-09-16 11:45 | disposition home health service (06) | DRG 71 ==
LOC: ED 20:59 → EDIP 21:49 → CCU 09-11 00:45 → 4WST 09-12 18:43 → 4EST 09-13 02:56
PROVIDERS: ADMIT Internal Medicine; ATTEND Internal Medicine
DX: G93.41 Metabolic encephalopathy (principal); F10.231 Alcohol dependence with withdrawal delirium; E46 Unspecified protein-calorie malnutrition; E87.2 Acidosis; J44.9 Chronic obstructive pulmonary disease, unspecified; F32.9 Major depressive disorder, single episode, unspecified; F41.1 Generalized anxiety disorder; I10 Essential (primary) hypertension; Z86.16 Personal history of COVID-19; R74.01 Elevation of levels of liver transaminase levels; E16.2 Hypoglycemia, unspecified; Z20.822 Contact with and (suspected) exposure to COVID-19; Z87.01 Personal history of pneumonia (recurrent); Z79.899 Other long term (current) drug therapy; Z79.891 Long term (current) use of opiate analgesic; Z79.01 Long term (current) use of anticoagulants
CPT/HCPCS: 36415; 71045; 80048; 80053; 80061; 80307; 80320; 82962; 83036; 83690; 83735; 84100; 84443; 85025; 87081; 93005; 96365; 96366; 99291; G0378; J1650; J2560; J3411; J7042; G0480; J2060; J3475; J7030; U0003

== ENCOUNTER 2020-10-23 21:06 | Emergency (ER) | payer MEDICARE, MEDICAID ==
[~2020-10-23] VITALS: Ht 170.2 cm; Wt 68.5 kg
[~2020-10-23 21:06] MED LIST changes: +PARO10TA56 PO
--- NOTE | 2020-10-23 21:20 | NUR ---
THIS IS A 65M BIB EMS FROM HOME FOR ETOH. STS WAS SEEN HERE AND [place] TODAY FOR SAME. VSS NADN UPON ARRIVAL PT REPORTS DRINKING ABOUT 1/2QT OF TEQUILA TODAY. PT RESTING ON GURNEY NO NEEDS AT THIS TIME ERP TO BEDSIDE FOR EVAL
[2020-10-23] MEDS ORDERED: THIAMINE 100MG TABLET PO ONE (21:30)
--- NOTE | 2020-10-23 22:21 | NUR ---
PT SLEEPING ON SHIV GORDON AT THIS TIME
--- NOTE | 2020-10-23 22:43 | NUR ---
PT SHOUTING AT STAFF NOW REQUESTING FOOD, PT REMINDED TO PLEASE USE CALL LIGHT
[2020-10-23] MEDS ORDERED: THIAMINE 100MG TABLET ONE (22:56)
[2020-10-23 22:57] VITALS: BP 106/65
--- NOTE | 2020-10-23 23:02 | NUR ---
PT PROVIDED WITH SNACKS AND BEVERAGES AT REQ, PT MEDICATED PER MAR NOW THAT HE IS MORE ALERT. NO NEEDS AT THIS TIME. PT EDUCATED THAT HE WILL BE DC HOME SOON, AGREES TO PLAN
--- NOTE | 2020-10-23 23:30 | NUR ---
PT AMBULATED THROUGH ED WITH STEADY GAIT NO ASSIST REQ, PT TO TAKE TAXI HOME STS WILL CALL.
== END 2020-10-23 23:31 | disposition home or self-care (01) ==
LOC: ED 21:25
DX: F10.220 Alcohol dependence with intoxication, uncomplicated (principal); Y90.0 Blood alcohol level of less than 20 mg/100 ml
CPT/HCPCS: 99283

== ENCOUNTER 2020-11-03 19:41 | Emergency (ER) | payer MEDICARE, MEDICAID ==
[~2020-11-03] VITALS: Ht 170.2 cm; Wt 68.2 kg
--- NOTE | 2020-11-03 20:43 | NUR ---
PT RESTING IN [facility], CONTINUOUS PULSE OX IN PLACE.
[2020-11-03 22:10] VITALS: BP 111/60
--- NOTE | 2020-11-03 22:11 | NUR ---
PT AMBULATED STEADY TO RESTROOM
== END 2020-11-03 23:41 | disposition home or self-care (01) ==
LOC: ED 19:57
DX: F10.120 Alcohol abuse with intoxication, uncomplicated (principal); Z72.9 Problem related to lifestyle, unspecified; I10 Essential (primary) hypertension; J44.9 Chronic obstructive pulmonary disease, unspecified; F17.200 Nicotine dependence, unspecified, uncomplicated; Y90.0 Blood alcohol level of less than 20 mg/100 ml
CPT/HCPCS: 99283

== ENCOUNTER 2020-11-07 11:16 | Emergency (ER) | payer MEDICARE, MEDICAID ==
[~2020-11-07] VITALS: Ht 170.2 cm; Wt 68.0 kg
--- NOTE | 2020-11-07 11:24 | NUR ---
PATIENT BIB EMS WITH CHIEF C/O ETOH. PATIENT REQUESTING TO DETOX, DRINKS 1 PINT OF TEQUILA PER DAY, YESTERDAY DRANK 1 QUART AND 1 PINT THIS MORNING. WAS SEEN AT [place] 1 WEEK AGO FOR SAME. VSS EN ROUTE, NO INTERVENTIONS. UPON ASSESSMENT, PATIENT IS A&O, CONNECTED TO MONITORS, VSS, DENIES SI/HI, SIDE RAILS UP X2, CALL LIGHT WITHIN REACH. SEIZURE PRECAUTIONS IN PLACE.
--- NOTE | 2020-11-07 12:10 | NUR ---
PATIENT RESTING IN [place], VSS, SEIZURE PRECAUTIONS IN PLACE, CALL LIGHT WITHIN REACH.
--- NOTE | 2020-11-07 13:16 | NUR ---
PATIENT RESTING IN GURNEY, WATCHING TV, SEIZURE PRECAUTIONS IN PLACE, NADN, VSS, CALL LIGHT WITHIN REACH.
[2020-11-07 14:20] VITALS: BP 157/94
--- NOTE | 2020-11-07 14:21 | NUR ---
FOOD TRAY ORDERED.
--- NOTE | 2020-11-07 14:32 | NUR ---
PATIENT PROVIDED FOOD TRAY.
--- NOTE | 2020-11-07 15:06 | NUR ---
Patient given discharge instructions and they have confirmed that they understand the instructions. Patient stable and ambulatory with steady gait from ED, taxi voucher provided.
== END 2020-11-07 15:07 | disposition home or self-care (01) ==
LOC: ED 11:41
DX: F10.220 Alcohol dependence with intoxication, uncomplicated (principal); I10 Essential (primary) hypertension; J44.9 Chronic obstructive pulmonary disease, unspecified; F17.200 Nicotine dependence, unspecified, uncomplicated; Y90.0 Blood alcohol level of less than 20 mg/100 ml
CPT/HCPCS: 99283

== ENCOUNTER 2020-11-27 16:01 | Emergency (ER) | payer MEDICARE, MEDICAID ==
[~2020-11-27] VITALS: Ht 170.2 cm; Wt 78.0 kg
--- NOTE | 2020-11-27 16:12 | NUR ---
Found down in his apartment after drinking 1 L of vodka. EMS report bs 105. Pt in bed with in gown with cont residential monitor, spo2, bp q 30 min, side rails up x2, call light in reach. pt put on 2 l nc for spo2 of 88. pt now 92%. side rials up x2, call light in reach.
--- NOTE | 2020-11-27 20:20 | NUR ---
pt asleep in bed, NAD, all needs in reach, call light in reach, side rails up, vitals stable
--- NOTE | 2020-11-27 20:54 | NUR ---
pt asleep in room, all needs in reach, call light in reach, NAD
--- NOTE | 2020-11-27 22:01 | NUR ---
pt asleep in room, all needs in reach, call light in reach, NAD, pt talks in his sleep
--- NOTE | 2020-11-27 23:00 | NUR ---
ASSUMED CARE OF PATIENT. REPORT GIVEN FROM ELI JOHN
--- NOTE | 2020-11-27 23:33 | NUR ---
PT IS ABLE TO SAFELY AMBULATE AROND ROOM AND CANELA. VS STABLE. PT IS ABLE TO GET SELF DRESSED. PT GIVEN CRACKERS AND JUICE. PT REPORTS HE WANTS A CAB TO THE [facility] WHERE HE IS GOING TO BUY A HOTEL ROOM. PT IS A&O X4. PT READY FOR DC.
[2020-11-27 23:34] VITALS: BP 147/77
== END 2020-11-27 23:56 | disposition home or self-care (01) ==
LOC: ED 17:37
DX: F10.220 Alcohol dependence with intoxication, uncomplicated (principal); R41.82 Altered mental status, unspecified; J44.9 Chronic obstructive pulmonary disease, unspecified; I10 Essential (primary) hypertension; Y90.0 Blood alcohol level of less than 20 mg/100 ml
CPT/HCPCS: 99283

== ENCOUNTER 2021-02-04 00:33 | Emergency (ER) | payer MEDICARE, MEDICAID ==
[~2021-02-04] VITALS: Ht 170.2 cm; Wt 66.8 kg
[2021-02-04 03:14] VITALS: BP 128/77
--- NOTE | 2021-02-04 03:14 | NUR ---
training intern: Patient given discharge instructions and they have confirmed that they understand the instructions. Patient ambulatory with steady gait. NAD, all questions answered appropriately, denies additional needs at this time. No personal belongings left in room after discharge. pt provided taxi voucher for dc.
== END 2021-02-04 03:19 | disposition home or self-care (01) ==
LOC: ED 00:59
DX: L50.9 Urticaria, unspecified (principal); J44.9 Chronic obstructive pulmonary disease, unspecified; I10 Essential (primary) hypertension
CPT/HCPCS: 99283

== ENCOUNTER 2021-02-22 15:16 | Emergency (ER) | payer MEDICARE, MEDICAID ==
[~2021-02-22] VITALS: Ht 170.2 cm; Wt 71.0 kg
[~2021-02-22 15:16] MED LIST changes: -OXYC-380 PO; +OXYC-501 PO
--- NOTE | 2021-02-22 15:37 | NUR ---
ASSUMED CARE OF PATIENT. PATIENT REPORTS HE IS FEELING SOB TODAY. PT DOES HAVE A HISTORY OF COPD. PT REPORTS HE DOES NOT USE OXYGEN AT HOME. VS STABLE. PULSE OX ON. CARDAIC MONITOR ON. CALL LIGHT IN PLACE. WILL CONTINUE TO MONITOR.
--- NOTE | 2021-02-22 16:26 | NUR ---
PT RESTING IN ROOM. VS STABLE. CALL LIGHT IN PLACE. WILL CONTINUE TO MONITOR.
[2021-02-22] MEDS ORDERED: ASPIRIN 81 MG TABLET CHEW ONE (16:47)
--- NOTE | 2021-02-22 16:57 | NUR ---
XRAY IN ROOM
[2021-02-22 17:00] LABS: BASOPHILS % (AUTO) 1 % (0-1); EOSINOPHILS % (AUTO) 7 % (1-7); LYMPHOCYTES % (AUTO) 22 % (22-44); MEAN CORPUSCULAR HEMOGLOBIN 31.9 pg (27.5-34.5); MEAN CORPUSCULAR HGB CONC 33.3 g/dL (33.2-36.2); MEAN PLATELET VOLUME 8.7 fL (7.4-10.4); MONOCYTES % (AUTO) 7 % (2-9); NEUTROPHILS % (AUTO) 63 % (42-75); PLATELET COUNT 382 x10^3/uL (130-400); RED BLOOD COUNT 4.49 x10^6/uL (4.38-5.82); RED CELL DISTRIBUTION WIDTH 14.2 % (9.4-14.8)
[2021-02-22] MEDS ORDERED: ASPIRIN 81 MG TABLET CHEW PO ONE (17:00)
[2021-02-22] MEDS ORDERED: SODIUM CHLORIDE 0.9% 1,000ML IVBOLUS ONE (17:00)
[2021-02-22] MEDS ORDERED: SODIUM CHLORIDE FLUSH 10ML SYR IVF ONE (17:00)
[2021-02-22 17:12] LABS: ALANINE AMINOTRANSFERASE 19 U/L (12-78); ALBUMIN 3.1 g/dL (3.4-5.0); ANION GAP 6 mmol/L (5-15); CALCIUM 8.2 mg/dL (8.5-10.1); CHLORIDE 110 mmol/L (98-107); CREATININE 0.97 mg/dL (0.7-1.3)
[2021-02-22 17:16] LABS: ALKALINE PHOSPHATASE 69 U/L (45-117); BILIRUBIN,TOTAL 0.1 mg/dL (0.2-1.0); TOTAL PROTEIN 7.1 g/dL (6.4-8.2); TROPONIN I < 0.015 ng/mL (0.000-0.045)
--- NOTE | 2021-02-22 18:06 | NUR ---
PT IN CT
[2021-02-22] MEDS ORDERED: OMNIPAQUE 350 MG/ML, 75ML BOTTLE ONE (18:14)
--- NOTE | 2021-02-22 18:22 | NUR ---
PT RESTING IN ROOM. VS STABLE. DIGITAL CAMERA TECHNICIAN ON. NSR NOTED. CALL LIGHT IN PLACE. WILL CONTINUE TO MONITOR.
--- NOTE | 2021-02-22 18:44 | NUR ---
DR DUMAS HAS UPDATED PATIENT.
[2021-02-22 19:34] VITALS: BP 161/95
--- NOTE | 2021-02-22 19:36 | NUR ---
PT IS A&O X4, VS STABLE. PT REQUESTING A TAXI BACK TO THE [facility], VOUCHER GIVEN. PT HAS APPROPRIATE CLOTHING ON AND SHOES. PT GIVEN FOOD AND WATER BEFORE DC. PT READY FOR DC.
== END 2021-02-22 19:38 | disposition home or self-care (01) ==
LOC: ED 15:26
DX: R06.00 Dyspnea, unspecified (principal); F10.10 Alcohol abuse, uncomplicated; F19.10 Other psychoactive substance abuse, uncomplicated; F17.210 Nicotine dependence, cigarettes, uncomplicated; R94.31 Abnormal electrocardiogram [ECG] [EKG]
CPT/HCPCS: 36415; 71045; 71275; 80053; 83880; 84484; 85025; 85379; 93005; 96360; 99285; 99406; J7030; Q9967

== ENCOUNTER 2021-02-26 15:25 | Observation (INO) | payer MEDICARE, MEDICAID ==
[~2021-02-26] VITALS: Ht 170.2 cm; Wt 62.9 kg
--- NOTE | 2021-02-26 15:50 | NUR ---
PT LEIA FROM [facility] FOR ETOH. PT UNABLE TO AMBULATE. pt on 4l nc [id number]% ATTAXCHED TO MONITORS. VSS. NADN. ETOH. PT SLURRING WORDS, VERY DRUNK, UNABLE TO ANSWER MOST QUETSIONS. BED IN LOW, RAILS ENGAGED. CALL LIGHT ON LAP BLANKETS GIVEN. WCTM
--- NOTE | 2021-02-26 15:55 | NUR ---
PT STATES HE DRANK A PINT OF VODKA
--- NOTE | 2021-02-26 16:21 | NUR ---
PT ATTACGHED TO CARD/SP02/BP MONITORING. VSS ON 4L NC
--- NOTE | 2021-02-26 17:12 | NUR ---
UPON ROUNDS PT WAS FOUND STANDING UP AT END OF BED. PT RIPPED OFF ALL HIS MONITORS. PT FOUND URINATING IN URINAL THEN DROPPING URINAL ON GROUND SPILLING URINE ALL OVER GROUND. PT ASSISTED BACK INTO BED. REATTCHED MONITORS AND 02. VSS. JENNIN PT STILL VERY INTOXICATED. SLURRING WORDS. TM
--- NOTE | 2021-02-26 17:31 | NUR ---
Patient is SLEEPING comfortably in bed. EYES CLOSED. Bed in lowest, rails engaged, call light on lap. Vital Signs within normal limits. WCTM. NADN
--- NOTE | 2021-02-26 18:29 | NUR ---
PT RESTING ON GURNEY RESP EVEN AND UNLABORED NADN, VSS NO NEEDS AT THIS TIME.
--- NOTE | 2021-02-26 19:07 | NUR ---
PT RIPPED OFF MONITORS AGAIN. PT TOOK OFF NC AND O2 DROPPED TO 86% PT REATTCHED TO MONITORS AND O2. VSS. WCTM
--- NOTE | 2021-02-26 20:13 | NUR ---
Patient is SLEEPING comfortably in bed. EYES CLOSED. Bed in lowest, rails engaged, call light on lap. Vital Signs within normal limits. WCTM. NADN
[2021-02-26 22:20] LABS: BASOPHILS % (AUTO) 1 % (0-1); EOSINOPHILS % (AUTO) 5 % (1-7); LYMPHOCYTES % (AUTO) 23 % (22-44); MEAN CORPUSCULAR HEMOGLOBIN 32.1 pg (27.5-34.5); MEAN CORPUSCULAR HGB CONC 33.3 g/dL (33.2-36.2); MEAN PLATELET VOLUME 9.1 fL (7.4-10.4); MONOCYTES % (AUTO) 6 % (2-9); NEUTROPHILS % (AUTO) 66 % (42-75); PLATELET COUNT 338 x10^3/uL (130-400); RED BLOOD COUNT 4.56 x10^6/uL (4.38-5.82); RED CELL DISTRIBUTION WIDTH 14.5 % (9.4-14.8)
[2021-02-26 22:54] LABS: ALBUMIN 3.3 g/dL (3.4-5.0); CALCIUM 8.5 mg/dL (8.5-10.1)
--- NOTE | 2021-02-26 23:06 | NUR ---
Patient is SLEEPING comfortably in bed. EYES CLOSED. Bed in lowest, rails engaged, call light on lap. Vital Signs within normal limits. WCTM. NADN
--- NOTE | 2021-02-26 23:06 | NUR ---
PT GIVEN WATER, CRACKERS, PILLOW, AND HEATED BLANKETS EARLIER.
[2021-02-26 23:19] LABS: ALANINE AMINOTRANSFERASE 20 U/L (12-78); ALKALINE PHOSPHATASE 69 U/L (45-117); ANION GAP 10 mmol/L (5-15); BILIRUBIN,TOTAL 0.2 mg/dL (0.2-1.0); CHLORIDE 111 mmol/L (98-107); CREATININE 0.78 mg/dL (0.7-1.3); TOTAL PROTEIN 7.1 g/dL (6.4-8.2)
--- NOTE | 2021-02-26 23:42 | NUR ---
PT AMBULATED TO BATHROOM WITH UNSTEADY GAIT. PT RIPPED OFF MONITORS AGAIN. 94% ON 2L NC REAPPLIED CW OPERATOR. PT STILL APPEARS INTOXICATED. WCTM
[2021-02-27 02:04] VITALS: BP 150/60
--- NOTE | 2021-02-27 02:09 | NUR ---
Patient/Caregiver given discharge instructions and they have confirmed that they understand the instructions. Patient ambulatory with steady gait. NAD, all questions answered appropriately, denies additional needs at this time. No personal belongings left in room after discharge. Addendum: 02/27/21 at 0211 by [email or web address] pt given jigar voucher for safe dc
== END 2021-02-27 02:19 | disposition home or self-care (01) ==
LOC: ED 17:26 → EDIP 21:33
PROVIDERS: ADMIT Emergency Medicine; ATTEND Emergency Medicine
DX: F10.220 Alcohol dependence with intoxication, uncomplicated (principal); F41.8 Other specified anxiety disorders; I10 Essential (primary) hypertension; J44.9 Chronic obstructive pulmonary disease, unspecified; Z79.899 Other long term (current) drug therapy
CPT/HCPCS: 36415; 71045; 80053; 80320; 85025; 99284; G0378; G0480

== ENCOUNTER 2021-03-01 18:33 | Emergency (ER) | payer MEDICAID, MEDICARE ==
[~2021-03-01] VITALS: Ht 170.2 cm; Wt 70.0 kg
[2021-03-01 20:41] VITALS: BP 97/61
== END 2021-03-01 22:22 | disposition left against medical advice (07) ==
LOC: ED 19:27
DX: F10.120 Alcohol abuse with intoxication, uncomplicated (principal); Y90.9 Presence of alcohol in blood, level not specified; G31.2 Degeneration of nervous system due to alcohol; Z72.9 Problem related to lifestyle, unspecified
CPT/HCPCS: 99283